=== PATIENT | male | born 1970 | race Two or more races ===

== ENCOUNTER 2020-07-22 14:59 | Emergency (ER) | payer MEDICAID ==
[~2020-07-22] VITALS: Ht 190.5 cm; Wt 110.0 kg
[2020-07-22 15:07] VITALS: BP 170/89
[2020-07-22] MEDS ORDERED: LIDOCAINE-MPF 1%, 5ML ONE (15:41)
== END 2020-07-22 16:49 | disposition home or self-care (01) ==
LOC: ED 16:40
DX: S61.412A Laceration without foreign body of left hand, initial encounter (principal); X58.XXXA Exposure to other specified factors, initial encounter; Y93.89 Activity, other specified; Y92.89 Other specified places as the place of occurrence of the external cause; Y99.8 Other external cause status
CPT/HCPCS: 12042; 99284

== ENCOUNTER 2020-08-07 11:53 | Emergency (ER) | payer MEDICAID ==
[~2020-08-07] VITALS: Ht 190.5 cm; Wt 110.1 kg
--- NOTE | 2020-08-07 12:30 | NUR ---
Report on why pt is here received from meal break RN and care assumed. ELIANA Mejia states she will go into room for assessment as pt arrived prior to the end of my meal period.
--- NOTE | 2020-08-07 12:45 | NUR ---
TASK RN: PT HERE WITH C/O LEFT HAND WOUND DEHISCENCE, PT REPORTS HE REMOVED SUTURES HIMSELF AFTER 10 DAYS AND NOW HAND IS SWOLLEN AND WOUND HAS OPENED.
[2020-08-07] MEDS ORDERED: SODIUM CHLORIDE FLUSH 10ML SYR IVF ONE (13:30)
[2020-08-07] MEDS ORDERED: VANCOMYCIN PER PHARMACY MC PRN (13:30)
[2020-08-07] MEDS ORDERED: VANCOMYCIN 2,500 MG in SODIUM CHLORIDE 0.9% 500 ML IV ONE (13:30)
--- NOTE | 2020-08-07 13:45 | NUR ---
IV started after pt returned from the restroom [place] with swelling to back of L hand noted. Minimal redness to site present. Labs drawn with IV start and sent with laboratory operations coordinator. IV pump found and brought to bedside after request for Vanco made to pharmacy. Awaiting delivery of medication.
[2020-08-07 14:02] LABS: BASOPHILS % (AUTO) 1 % (0-1); EOSINOPHILS % (AUTO) 0 % (1-7); LYMPHOCYTES % (AUTO) 6 % (22-44); MEAN CORPUSCULAR HEMOGLOBIN 31.6 pg (27.5-34.5); MEAN CORPUSCULAR HGB CONC 34.1 g/dL (33.2-36.2); MEAN PLATELET VOLUME 9.4 fL (7.4-10.4); MONOCYTES % (AUTO) 1 % (2-9); NEUTROPHILS % (AUTO) 92 % (42-75); PLATELET COUNT 232 x10^3/uL (130-400); RED CELL DISTRIBUTION WIDTH 14.5 % (9.4-14.8)
[2020-08-07 14:11] LABS: ANION GAP 7 mmol/L (5-15); CHLORIDE 107 mmol/L (98-107); CREATININE 1.55 mg/dL (0.7-1.3)
--- NOTE | 2020-08-07 14:20 | NUR ---
Faith received from pharmacy and started via pump at this time.
[2020-08-07 14:26] LABS: MD SCAN
[2020-08-07 15:48] VITALS: BP 127/65
== END 2020-08-07 15:51 | disposition home or self-care (01) ==
LOC: ED 14:10
DX: T81.33XA Disruption of traumatic injury wound repair, initial encounter (principal); X58.XXXA Exposure to other specified factors, initial encounter; Y93.89 Activity, other specified; Y92.89 Other specified places as the place of occurrence of the external cause; Y99.8 Other external cause status
CPT/HCPCS: 36415; 80048; 82040; 85025; 87070; 87205; 96365; 96366; 99284; J3370; J7040

== ENCOUNTER → 2020-08-18 | Outpatient (CLI) | payer MEDICAID | END | disposition home or self-care (01) | LOC: STAR 12:46 | PROVIDERS: ATTEND Orthopaedic Surgery | DX: Z20.822 Contact with and (suspected) exposure to COVID-19 (principal) | CPT/HCPCS: U0003; U0005 ==

== ENCOUNTER 2020-08-22 13:51 | Observation (INO) | payer MEDICAID ==
[~2020-08-22] VITALS: Ht 190.5 cm; Wt 114.0 kg
[2020-08-22] MEDS ORDERED: CHLORHEXIDINE 15 ML UDC ONE (14:15)
[2020-08-22] MEDS ORDERED: LACTATED RINGERS 1,000 ML IV SCH (14:30)
[2020-08-22] MEDS ORDERED: CHLORHEXIDINE 15 ML UDC PO ONE (14:30)
[2020-08-22 14:33] VITALS: BP 126/90
[2020-08-22] MEDS ORDERED: QUET100T4 PO (14:41)
[2020-08-22] MEDS ORDERED: BUPR300T49 PO (14:41)
[2020-08-22] MEDS ORDERED: FENTANYL PF 100 MCG/2ML ONE (15:19)
[2020-08-22] MEDS ORDERED: DEXAMETHASONE 4 MG/ML, 5ML ONE (15:24)
[2020-08-22] MEDS ORDERED: LABETALOL 5MG/ML, 20ML IV PRN (15:30)
[2020-08-22] MEDS ORDERED: DIPHENHYDRAMINE 50 MG/ML, 1ML IVPush PRN (15:30)
[2020-08-22] MEDS ORDERED: HALOPERIDOL 5 MG/ML IV PRN (15:30)
[2020-08-22] MEDS ORDERED: MEPERIDINE/PF 25MG/0.5ML IVPush PRN (15:30)
[2020-08-22] MEDS ORDERED: HYDROmorphone 1 MG/ML, 1ML INJ IVPush PRN (15:30)
[2020-08-22] MEDS ORDERED: ACETAMINOPHEN 325 MG TABLET PO PRN (15:30)
[2020-08-22] MEDS ORDERED: OXYcodone 5 MG/5 ML ORAL.SOL UDC PO PRN (15:30)
[2020-08-22] MEDS ORDERED: FENTANYL PF 100 MCG/2ML IV PRN (15:30)
[2020-08-22] MEDS ORDERED: hydrALAzine 20 MG/ML, 1ML IV PRN (15:30)
[2020-08-22] MEDS ORDERED: PROMETHAZINE 25 MG/ML, 1ML IVPush PRN (15:30)
[2020-08-22] MEDS ORDERED: CEFAZOLIN 1,000 MG ONE (16:27)
[2020-08-22] MEDS ORDERED: ONDANSETRON 2MG/ML, 2ML ONE ×2 (16:40)
[2020-08-22] MEDS ORDERED: PROPOFOL 10 MG/ML, 20ML ONE ×2 (16:40)
[2020-08-22] MEDS ORDERED: BUPIVACAINE/PF 0.5% ONE (16:58)
[2020-08-22 19:00] VITALS: BP 138/89
[2020-08-22] MEDS ORDERED: VANCOMYCIN PMX 1GM/200ML 200 ML IVPB SCH (19:00)
[2020-08-22] MEDS ORDERED: ONDANSETRON 2MG/ML, 2ML IV PRN (19:00)
[2020-08-22] MEDS ORDERED: VANCOMYCIN 1,000 MG in SODIUM CHLORIDE 0.9% 100 ML IV SCH (19:30)
[2020-08-23] MEDS ORDERED: CEPHALEXIN 500 MG CAPSULE PO SCH (08:00)
[2020-08-23 08:30] VITALS: BP 124/83
[2020-08-23] MEDS ORDERED: SODIUM CHLORIDE 0.9% IV SCH (08:30)
[2020-08-23] MEDS ORDERED: VANCOMYCIN 1,700 MG in SODIUM CHLORIDE 0.9% 250 ML IV SCH (08:30)
[2020-08-23] MEDS ORDERED: VANCOMYCIN IV SCH (08:30)
[2020-08-23] MEDS ORDERED: DOXYCYCLINE 100MG TABLET PO SCH (09:00)
[2020-08-23] MEDS ORDERED: DOXY150T PO (09:38)
[2020-08-23] MEDS ORDERED: CEPH500T PO (09:39)
[2020-08-23] MEDS ORDERED: MUPI22OI2 TP (09:41)
[2020-08-23] MEDS ORDERED: OXYC5CAP2 PO (09:48)
== END 2020-08-23 10:36 | disposition home or self-care (01) ==
LOC: OR 13:51 → 4NE 18:32 → OR 18:35 → DCLOUNGE 08-23 10:21
PROVIDERS: ADMIT Orthopaedic Surgery; ATTEND Orthopaedic Surgery
DX: T81.41XA Infection following a procedure, superficial incisional surgical site, initial encounter (principal); S61.412D Laceration without foreign body of left hand, subsequent encounter; L08.9 Local infection of the skin and subcutaneous tissue, unspecified; D72.829 Elevated white blood cell count, unspecified; Z79.899 Other long term (current) drug therapy; W26.8XXD Contact with other sharp object(s), not elsewhere classified, subsequent encounter
CPT/HCPCS: 11043; 87015; 87070; 87075; 87102; 87116; 87205; 87206; 96365; 96366; G0378; J0690; J2405; J2704; J3010; J3370; J7050; J7120; S0020; J1100